=== PATIENT | male | born 1940 | race Caucasian/White ===

== ENCOUNTER 2023-02-15 09:42 | Outpatient (CLI) | payer MEDICARE, OTHER, SELFPAY | END 2023-02-15 09:43 | disposition home or self-care (01) | PROVIDERS: Visit Provider Family Medicine | DX: R10.9 Unspecified abdominal pain (principal); R11.2 Nausea with vomiting, unspecified; R19.7 Diarrhea, unspecified | CPT/HCPCS: A0425; A0427 ==